=== PATIENT | male | born 1995 | race Caucasian/White ===

== ENCOUNTER 2018-02-25 19:18 | Emergency (ER) | payer BC, MEDICAID ==
[2018-02-25] MEDS ORDERED: Morphine 4 MG/ML Syringe IM ONE (20:56)
[2018-02-25] MEDS ORDERED: Morphine 4 MG/ML Syringe ONE (21:22)
[2018-02-26 05:19] VITALS: BP 140/90
== END 2018-02-25 22:00 | disposition home or self-care (01) ==
LOC: JP.ED 19:18
DX: K08.89 Other specified disorders of teeth and supporting structures (principal)
CPT/HCPCS: 96372; 99282; J2270

== ENCOUNTER 2022-09-14 20:30 | Emergency (ER) | payer BC, MEDICAID ==
[2022-09-14 20:56] VITALS: BP 117/72; PULSE 98
[2022-09-14] MEDS ORDERED: Sodium Chloride 0.9% 10 ML Syringe FLUSH PRN (21:07)
[2022-09-14] MEDS ORDERED: Sodium Chloride 0.9% 1,000 ML IV ONE (21:09)
[2022-09-14] MEDS ORDERED: Pantoprazole 40 MG Vial IVPUSH ONE (21:34)
[2022-09-14] MEDS ORDERED: Ondansetron 4 MG/2 ML SDV IVPUSH ONE (21:35)
[2022-09-14 21:44] LABS: ESTIMATED GFR 106 mL/min (>60)
[2022-09-14] MEDS ORDERED: 50% Dextrose in Water 50 ML Syringe IVPUSH ONE (22:18)
[2022-09-14] MEDS ORDERED: Magnesium Oxide 400 MG Tab PO ONE (22:18)
== END 2022-09-14 22:48 | disposition home or self-care (01) ==
LOC: JP.ED 20:30
DX: D72.829 Elevated white blood cell count, unspecified (principal); E16.2 Hypoglycemia, unspecified; E83.42 Hypomagnesemia; F10.10 Alcohol abuse, uncomplicated; F17.210 Nicotine dependence, cigarettes, uncomplicated
CPT/HCPCS: 36415; 80053; 80307; 82803; 83605; 83690; 83735; 85025; 85610; 96361; 96374; 96375; 99283; A9270; C9113; J2405; J3490; J7030